=== PATIENT | male | born 1970 | race Caucasian/White ===

== ENCOUNTER 2021-09-09 11:58 | Emergency (ER) | payer OTHER ==
[~2021-09-09] VITALS: Ht 167.6 cm; Wt 83.9 kg
[2021-09-09] MEDS ORDERED: SUPER THERAVIT1 EACH PO (12:15)
[2021-09-09] MEDS ORDERED: GLUCOSAMINE1000 MG PO (12:15)
[2021-09-09] MEDS ORDERED: SLOW FE142 MG PO (12:15)
[2021-09-09] MEDS ORDERED: VITAMIN B-121000 MC2 SUBLING (12:15)
[2021-09-09] MEDS ORDERED: VITAMIN C100 MG PO (12:16)
[2021-09-09] MEDS ORDERED: IBUPROFEN 800800 M1 PO (15:13)
[2021-09-09 15:25] VITALS: BP 136/94
== END 2021-09-09 15:26 | disposition home or self-care (01) ==
LOC: M.ERS 11:58 → EDBD 11:58 → M.ERS 15:26
DX: S46.211A Strain of muscle, fascia and tendon of other parts of biceps, right arm, initial encounter (principal); E78.5 Hyperlipidemia, unspecified; Z79.899 Other long term (current) drug therapy; W21.05XA Struck by basketball, initial encounter; Y93.67 Activity, basketball; Y92.89 Other specified places as the place of occurrence of the external cause; Y99.8 Other external cause status